=== PATIENT | female | born 1985 | race African-American/Black ===

== ENCOUNTER 2016-08-23 20:37 | Emergency (ER) | payer OTHER ==
--- NOTE | 2016-08-23 21:31 | ED Physician Chart ---
Chief Complaint/HPI - Patient Information Date Seen:: 08/23/16 Time Seen:: 21:15 Chief Complaint:: vaginal discharge History of Present Illness:: patient has had vaginal discharge and abdominal pain for a few weeks. Is but unsure how many weeks. LMP . . Allergies:: Allergies Allergy/AdvReac Type Severity Reaction Status Date / Time No Known Allergies Allergy Verified 01/31/16 14:08 Vitals:: Vital Signs - 8 hr 08/23/16 21:03 Temp 98.2 F HR 100 RR 18 BP 121/66 O2 Sat % 97 Historian:: Patient Review:: Nurse's Note Reviewed Review of Systems - Review of Systems General/Constitutional: No fever, No chills Skin: No skin lesions Head: No headache Eyes: No loss of vision ENT: No earache Neck: No neck pain Cardio Vascular: No chest pain Pulmonary: No SOB GI: No nausea, No vomiting, No diarrhea, Pain G/U: No dysuria Bead Inspector: Vaginal discharge Musculoskeletal: No bone or joint pain Endocrine: No polyuria, No polydipsia Psychiatric: No prior psych history Hematopoietic: No bruising Allergic/Immuno: No urticaria Neurological: No syncope Past Medical History - Past Medical History Past Medical History: No significant medical hx Family History: HTN Social History: Smoker Surgical History: None Psychiatricy History: None Medication: None Family Medical History - Family Member Mother History Unknown: Yes Living Status: Still Living Hx Family Cancer: No Hx Family Coronary Artery Disease: No Hx Family Congestive Heart Failure: No Hx Family Hypertension: Yes Hx Family Stroke: No Physical Exam - Physical Examination General/Constitutional: Well-developed, well-nourished, Alert Head: Atraumatic Eyes: Lids, conjuctiva normal, PERRL Skin: Nl inspection, No rash, No skin lesions, No ecchymosis ENMT: External ears, nose nl Neck: No nuchal rigidity Respiratory: Nl effort/Exclusion, Clear to Auscultation Cardio Vascular: RRR, No murmur, gallop, rubs, NL S1 S2 GI: No tenderness/rebounding/guarding, No organomegaly, No hernia, Normal BS's, Nondistended, No mass/bruits, No McBurney tenderness : No CVA tenderness, NL external genitalia, No CMT, NL adnexa Other comments:: 2.5/4 thick white discharge. Extremities: Normal digits & nails Neuro/Psych: Alert/oriented, No focal deficits Misc: Normal back Labs/Radiology/EKG Results - Lab Results Results: Ua 10-25 WBC; urine test positive ED Septic Shock - . Is Septic Shock (SBP<90, OR Lactate>4 mmol\L) present?: No - <6hrs of presentation: Vital Signs: Vital Signs - 8 hr 08/23/16 21:03 Temp 98.2 F HR 100 RR 18 BP 121/66 O2 Sat % 97 Reassessment (Disposition) - Reassessment Reassessment Condition:: Unchanged - Diagnosis Diagnosis:: UTI; intrauterine - Aftercare/Follow up Instructions Aftercare/Follow-Up Instructions:: Refer to Discharge Instructions Medication Prescribed:: Keflex 500 mg QID for one week - Patient Disposition Discharge/Transfer:: Home Condition at Disposition:: Stable, Unchanged
[2016-08-23 22:35] LABS: URINE BILIRUBIN NEGATIVE (NEGATIVE); URINE BLOOD NEGATIVE (NEGATIVE); URINE COLOR YELLOW; URINE GLUCOSE (UA) NEGATIVE (NEGATIVE); URINE KETONE NEGATIVE (NEGATIVE); URINE PROTEIN 30 mg/dL (NEGATIVE)
[2016-08-23 22:36] LABS: URINE BACTERIA MODERATE /hpf (NONE SEEN); URINE EPITHELIAL CELLS MODERATE /lpf (FEW); URINE RBC 0-2 /hpf (0-5)
== END 2016-08-23 23:02 | disposition home or self-care (01) ==
LOC: ER 20:37
DX: O23.40 Unspecified infection of urinary tract in pregnancy, unspecified trimester (principal); F17.200 Nicotine dependence, unspecified, uncomplicated
CPT/HCPCS: 81001-TC; 81025-TC; 87086-90; 87491-90; Z7502

== ENCOUNTER 2016-09-15 18:04 | Emergency (ER) | payer OTHER ==
--- NOTE | 2016-09-15 19:17 | ED Physician Chart ---
Chief Complaint/HPI - Patient Information Date Seen:: 09/15/16 Time Seen:: 18:45 Allergies:: Allergies Allergy/AdvReac Type Severity Reaction Status Date / Time No Known Allergies Allergy Verified 09/15/16 18:51 Vitals:: Vital Signs - 8 hr 09/15/16 18:52 Temp 98.3 F HR 100 RR 18 BP 109/65 O2 Sat % 98 Review of Systems - Review of Systems General/Constitutional: No fever, No chills, No weight loss G/U: No dysuria, No frequency Executive Business Coach: Vaginal discharge Musculoskeletal: Bone or joint pain (14 weeks ) Family Medical History - Family Member Mother History Unknown: Yes Ethnicity: Non- Living Status: Still Living Hx Family Cancer: No Hx Family Coronary Artery Disease: No Hx Family Congestive Heart Failure: No Hx Family Hypertension: Yes Hx Family Stroke: No Physical Exam - Physical Examination General/Constitutional: Awake, Well-developed, well-nourished, Alert, No distress, Non-toxic appearing Eyes: PERRL Skin: No rash Respiratory: Nl effort/Exclusion GI: No tenderness/rebounding/guarding, Nondistended Neuro/Psych: Alert/oriented, Mood normal Labs/Radiology/EKG Results - Lab Results Results: pt declines formal exam and testing "i just want antibx for chlamydia and GC". Assessment - Assessment General Assessment: hx unprotected sex with vag d/c and told by boyfriend he has "STD". 14 weeks . ED Septic Shock - . Is Septic Shock (SBP<90, OR Lactate>4 mmol\\L) present?: No - <6hrs of presentation: Vital Signs: Vital Signs - 8 hr 09/15/16 18:52 Temp 98.3 F HR 100 RR 18 BP 109/65 O2 Sat % 98
== END 2016-09-15 21:00 | disposition home or self-care (01) ==
LOC: ER 18:04
DX: O26.92 Pregnancy related conditions, unspecified, second trimester (principal); Z3A.14 14 weeks gestation of pregnancy
CPT/HCPCS: J0696; Z7502

== ENCOUNTER 2016-10-18 02:26 | Emergency (ER) | payer OTHER ==
[2016-10-18 03:06] LABS: URINE BILIRUBIN NEGATIVE (NEGATIVE); URINE BLOOD NEGATIVE (NEGATIVE); URINE COLOR YELLOW; URINE GLUCOSE (UA) NEGATIVE (NEGATIVE); URINE KETONE NEGATIVE (NEGATIVE); URINE PH 7.5; URINE PROTEIN NEGATIVE (NEGATIVE); URINE UROBILINOGEN 0.2 E.U./dL (0.2 - 1.0)
[2016-10-18 03:07] LABS: URINE BACTERIA FEW /hpf (NONE SEEN); URINE EPITHELIAL CELLS MODERATE /lpf (FEW); URINE RBC 0-2 /hpf (0-5)
--- NOTE | 2016-10-18 03:18 | ED Physician Chart ---
Chief Complaint/HPI - Patient Information Date Seen:: 10/18/16 Time Seen:: 03:18 Chief Complaint:: think i have a std History of Present Illness:: pt well known to me from prior visits. she says she was txd recently for gc/chlamydia. says she went again and has been having sex w same partner again who has not been treated. pt hs poor recolection of when/where txd or when exposed. she now says she has a yellow dc and itching and thinks the infection is back. I have advised her that a dc during can be nrml. there are other std s besides gc/chlam and pt is unsure even if this is what he had. I have advised pt that I would reccomend we do testing now and have her visit her finance analyst dr in 2 days to interpret result and treat prn. pt insisting she wants a rx now. she is currently 16 wks gravid. she has seen her finance analyst dr in past and had us ok. no recent abd cramps or contractions or uterine pain. no fever. no dysuria. Allergies:: Allergies Allergy/AdvReac Type Severity Reaction Status Date / Time No Known Allergies Allergy Verified 09/15/16 18:51 Vitals:: Vital Signs - 8 hr 10/18/16 02:39 Temp 98.2 F HR 67 RR 19 BP 119/76 O2 Sat % 100 Historian:: Patient Review of Systems - Review of Systems General/Constitutional: No fever, No chills, No weight loss, No weakness, No diaphoresis, No edema, No loss of appetite Skin: No skin lesions, No rash, No bruising Head: No headache, No light-headedness Eyes: No loss of vision, No pain, No diplopia ENT: No earache, No nasal drainage, No sore throat, No tinnitus Neck: No neck pain, No swelling, No thyromegaly, No stiffness, No mass noted Cardio Vascular: No chest pain, No palpitations, No PND, No orthopnea, No edema Pulmonary: No SOB, No cough, No sputum, No wheezing GI: No nausea, No vomiting, No diarrhea, No pain, No melena, No hematochezia, No constipation, No hematemesis G/U: No dysuria, No frequency, No hematuria Drafter Cartographic: Vaginal discharge Musculoskeletal: No bone or joint pain, No back pain, No muscle pain Endocrine: No polyuria, No polydipsia Psychiatric: No prior psych history, No depression, No anxiety, No suicidal ideation Hematopoietic: No bruising, No lymphadenopathy Allergic/Immuno: No urticaria, No angioedema Neurological: No syncope, No focal symptoms, No weakness, No paresthesia, No headache, No seizure, No dizziness, No confusion, No vertigo Past Medical History - Past Medical History Past Medical History: Other (gravid) Social History: Smoker, No Alcohol Psychiatricy History: Other (anxiety) Medication: Reviewed Family Medical History - Family Member Mother History Unknown: Yes Ethnicity: Non- Living Status: Still Living Hx Family Cancer: No Hx Family Coronary Artery Disease: No Hx Family Congestive Heart Failure: No Hx Family Hypertension: Yes Hx Family Stroke: No Physical Exam - Physical Examination General/Constitutional: Awake, Well-developed, well-nourished, Alert, No distress, GCS 15, Non-toxic appearing, Ambulatory Head: Atraumatic Eyes: Lids, conjuctiva normal, PERRL, EOMI Skin: Nl inspection, No rash, No skin lesions, No ecchymosis, Well hydrated, No lymphadenopathy ENMT: External ears, nose nl, Nasal exam nl, Lips, teeth, gums nl, Oropharynx nl Neck: Nontender, Full ROM w/o pain, No JVD, No nuchal rigidity, No bruit, No mass, No stridor Respiratory: Nl effort/Exclusion, Clear to Auscultation, No Wheeze/Rhonchi/Rales Cardio Vascular: RRR, No murmur, gallop, rubs, NL S1 S2 GI: No tenderness/rebounding/guarding, No organomegaly, No hernia, Normal BS's, Nondistended, No mass/bruits, No McBurney tenderness Other GI comments:: gravid belly ,,uterine sz cw dates //nontndr. pos nabs. no rebound : No CVA tenderness Extremities: No tenderness or effusion, Full ROM, normal strength in all extremities, No edema, Normal digits & nails Neuro/Psych: Alert/oriented, DTR's symmetric, Normal sensory exam, Normal motor strength, Judgement/insight normal, Mood normal, Normal gait, No focal deficits Misc: normal gait, Normal back, No paraspinal tenderness Labs/Radiology/EKG Results - Lab Results Results: Laboratory Tests 10/18/16 10/18/16 02:45 02:45 Urine Source RANDOM Urine Color YELLOW Urine Clarity CLEAR Urine pH 7.5 Ur Specific [place] 1.020 Urine Protein NEGATIVE Urine Glucose (UA) NEGATIVE Urine Ketones NEGATIVE Urine Blood NEGATIVE Urine Nitrate NEGATIVE Urine Bilirubin NEGATIVE Urine Urobilinogen 0.2 Ur Leukocyte Esterase SMALL H Urine RBC 0-2 Urine WBC 6-10 H Ur Epithelial Cells MODERATE Urine Bacteria FEW Urine Test POSITIVE ED Septic Shock - . Is Septic Shock (SBP<90, OR Lactate>4 mmol\L) present?: No - <6hrs of presentation: Vital Signs: Vital Signs - 8 hr 10/18/16 02:39 Temp 98.2 F HR 67 RR 19 BP 119/76 O2 Sat % 100 Reassessment (Disposition) - Reassessment Reassessment Condition:: Unchanged - Diagnosis Diagnosis:: possible std - Aftercare/Follow up Instructions Aftercare/Follow-Up Instructions:: Counseled pt regarding lab results/diagnosis & need follow up Medication Prescribed:: rx amox 500tid x1wk and 1g po azithromycin pt was strongly advised that it would be better to see her finance analyst dr and check the lab reults before taking this med. she is insistent on having this med. pt did not tell me ...seemed very avoidant of reporting full story ...but she tells rn that she was just at other hosp across [facility] earlier [facility] and was told she has no infection and was refused abx. was upset by this. please get all partners tested and treated before resuming sex wo a condom. - Patient Disposition Discharge/Transfer:: Home Condition at Disposition:: Unchanged
== END 2016-10-18 03:40 | disposition home or self-care (01) ==
LOC: ER 02:26
DX: O26.892 Other specified pregnancy related conditions, second trimester (principal); Z11.3 Encounter for screening for infections with a predominantly sexual mode of transmission; F17.200 Nicotine dependence, unspecified, uncomplicated; Z3A.16 16 weeks gestation of pregnancy
CPT/HCPCS: 81001-TC; 81025-TC; 87491-90; Z7502

== ENCOUNTER 2017-04-15 20:24 | Emergency (ER) | payer MEDICAID, OTHER ==
[2017-04-15 21:35] LABS: % BASOPHILS 0.4 % (0.0-2.0); % EOSINOPHILS 2.1 % (0.0-5.0); % LYMPHOCYTES 40.7 % (20.0-50.0); % MONOCYTES 10.5 % (2.0-10.0); % NEUTROPHILS 46.3 % (40.0-80.0); HEMATOCRIT 39.4 % (41.0-60); HEMOGLOBIN 13.2 gm/dL (12-16); MEAN CELL VOLUME 88.9 fl (81-100); MEAN CORPUSCULAR HEMOGLOBIN 29.7 pg (27.0-31.0); MEAN CORPUSCULAR HGB CONC 33.4 pg (28.0-36.0); MEAN PLATELET VOLUME 7.7 fl; NEUTROPHILE ABSOLUTE 2.9 Th/cmm (1.8-8.0); RED BLOOD COUNT 4.43 Mil/cmm (3.80-5.10); RED CELL DISTRIBUTION WIDTH 14.1 % (11.5-20.0)
[2017-04-15 21:36] LABS: PLATELET COUNT 321 Th/cmm (150-400); WHITE BLOOD COUNT 6.3 Th/cmm (4.8-10.8)
--- NOTE | 2017-04-15 21:42 | ED Physician Chart ---
ED Chief Complaint/HPI - Patient Information Date Seen:: 04/15/17 Time Seen:: 20:40 Chief Complaint:: pelvic discomfort History of Present Illness:: THIS IS A 31 YEAR OLD FEMALE WHO IS CONCERNED ABOUT GETTING A PELVIC EXAMINE EACH TIME THAT SHE COMES TO THE ER. SHE HAS BEEN HERE MULTIPLE TIME FOR VAGINAL EXAMINES AND INFECTIONS. SHE STATED THAT SHE HAS A WHITE DISCHARGE AND WANTS MEDICATION FOR PELVIC DISEASE AND AN HIV TEST. Allergies:: Allergies Allergy/AdvReac Type Severity Reaction Status Date / Time No Known Allergies Allergy Verified 04/15/17 20:37 Vitals:: Vital Signs - 8 hr 04/15/17 20:35 Temp 98.1 F HR 98 RR 20 BP 125/77 O2 Sat % 100 Historian:: Patient Review:: Nurse's Note Reviewed, Old Chart Reviewed ED Review of Systems - Review of Systems General/Constitutional: No fever, No chills, No weight loss, No weakness, No diaphoresis, No edema, No loss of appetite Skin: No skin lesions, No rash, No bruising Head: No headache, No light-headedness Eyes: No loss of vision, No pain, No diplopia ENT: No earache, No nasal drainage, No sore throat, No tinnitus Neck: No neck pain, No swelling, No thyromegaly, No stiffness, No mass noted Cardio Vascular: No chest pain, No palpitations, No PND, No orthopnea, No edema Pulmonary: No SOB, No cough, No sputum, No wheezing GI: No nausea, No vomiting, No diarrhea, No pain, No melena, No hematochezia, No constipation, No hematemesis G/U: No dysuria, No frequency, No hematuria Shoe Trimmer: Vaginal discharge Musculoskeletal: No bone or joint pain, No back pain, No muscle pain Endocrine: No polyuria, No polydipsia Psychiatric: No prior psych history, No depression, No anxiety, No suicidal ideation Hematopoietic: No bruising, No lymphadenopathy Allergic/Immuno: No urticaria, No angioedema Neurological: No syncope, No focal symptoms, No weakness, No paresthesia, No headache, No seizure, No dizziness, No confusion, No vertigo ED Past Medical History - Past Medical History Obtainable: Yes Past Medical History: No significant medical hx Family History: None Social History: Non Smoker, No Alcohol, Illicit Drug Use Surgical History: None Psychiatricy History: None Medication: Reviewed Family Medical History - Family Member Mother History Unknown: Yes Ethnicity: Non- Living Status: Still Living Hx Family Cancer: No Hx Family Coronary Artery Disease: No Hx Family Congestive Heart Failure: No Hx Family Hypertension: Yes Hx Family Stroke: No ED Physical Exam - Physical Examination General/Constitutional: Awake, Well-developed, well-nourished, Alert, No distress, GCS 15, Non-toxic appearing, Ambulatory Head: Atraumatic Eyes: Lids, conjuctiva normal, PERRL, EOMI Skin: Nl inspection, No rash, No skin lesions, No ecchymosis, Well hydrated, No lymphadenopathy ENMT: External ears, nose nl, Nasal exam nl, Lips, teeth, gums nl Neck: Nontender, Full ROM w/o pain, No JVD, No nuchal rigidity, No bruit, No mass, No stridor Respiratory: Nl effort/Exclusion, Clear to Auscultation, No Wheeze/Rhonchi/Rales Cardio Vascular: RRR, No murmur, gallop, rubs, NL S1 S2 GI: No tenderness/rebounding/guarding, No organomegaly, No hernia, Normal BS's, Nondistended, No mass/bruits, No McBurney tenderness : No CVA tenderness, NL external genitalia Extremities: No tenderness or effusion, Full ROM, normal strength in all extremities, No edema, Normal digits & nails Neuro/Psych: Alert/oriented, DTR's symmetric, Normal sensory exam, Normal motor strength, Judgement/insight normal, Mood normal, Normal gait, No focal deficits Misc: normal gait, Normal back, No paraspinal tenderness ED Labs/Radiology/EKG Results - Lab Results Results: Laboratory Tests 04/15/17 04/15/17 04/15/17 20:35 20:35 20:35 WBC RBC Hgb Hct MCV MCH MCHC Differential RDW Plt Count MPV Neutrophils % Lymphocytes % Monocytes % Eosinophils % Basophils % Sodium Potassium Chloride Carbon Dioxide Anion Gap BUN Creatinine Est GFR ( Amer) Est GFR (Non-Af Amer) BUN/Creatinine Ratio Glucose Calcium Total Bilirubin AST ALT Alkaline Phosphatase Troponin I Total Protein Albumin Globulin Albumin/Globulin Ratio TSH Urine Source CLEAN C Urine Color YELLOW Urine Clarity HAZY Urine pH 6.0 Ur Specific [place] <= 1.005 Urine Protein NEGATIVE Urine Glucose (UA) NEGATIVE Urine Ketones NEGATIVE Urine Blood MODERATE H Urine Nitrate NEGATIVE Urine Bilirubin NEGATIVE Urine Urobilinogen 0.2 Ur Leukocyte Esterase LARGE H Urine RBC 2-5 Urine WBC 25-50 H Ur Epithelial Cells MODERATE Urine Bacteria MODERATE Urine Test NEGATIVE Urine Opiates Screen POSITIVE H Urine Methadone Screen NEGATIVE Ur Barbiturates Screen NEGATIVE Ur Tricyclics Screen NEGATIVE Ur Phencyclidine Scrn NEGATIVE Amphetamines Screen NEGATIVE U Methamphetamines Scrn NEGATIVE U Benzodiazepines Scrn NEGATIVE U Cocaine Metab Screen NEGATIVE U Cannabinoids Screen NEGATIVE RPR HIV 1&2 Antibody Screen 04/15/17 04/15/17 04/15/17 21:19 21:19 21:19 WBC 6.3 D RBC 4.43 Hgb 13.2 Hct 39.4 L MCV 88.9 MCH 29.7 MCHC Differential 33.4 RDW 14.1 Plt Count 321 D MPV 7.7 Neutrophils % 46.3 Lymphocytes % 40.7 Monocytes % 10.5 H Eosinophils % 2.1 Basophils % 0.4 Sodium 135 L Potassium 3.5 Chloride 103 Carbon Dioxide 27.5 Anion Gap 8.0 BUN 8 Creatinine 0.9 Est GFR ( Amer) > 60.0 Est GFR (Non-Af Amer) > 60.0 BUN/Creatinine Ratio 8.9 Glucose 94 Calcium 9.4 Total Bilirubin 0.4 AST 30 ALT 28 Alkaline Phosphatase 78 Troponin I < 0.01 L Total Protein 8.0 Albumin 4.2 Globulin 3.8 Albumin/Globulin Ratio 1.1 TSH Urine Source Urine Color Urine Clarity Urine pH Ur Specific [place] Urine Protein Urine Glucose (UA) Urine Ketones Urine Blood Urine Nitrate Urine Bilirubin Urine Urobilinogen Ur Leukocyte Esterase Urine RBC Urine WBC Ur Epithelial Cells Urine Bacteria Urine Test Urine Opiates Screen Urine Methadone Screen Ur Barbiturates Screen Ur Tricyclics Screen Ur Phencyclidine Scrn Amphetamines Screen U Methamphetamines Scrn U Benzodiazepines Scrn U Cocaine Metab Screen U Cannabinoids Screen RPR HIV 1&2 Antibody Screen 04/15/17 04/15/17 04/15/17 21:19 21:19 21:19 WBC RBC Hgb Hct MCV MCH MCHC Differential RDW Plt Count MPV Neutrophils % Lymphocytes % Monocytes % Eosinophils % Basophils % Sodium Potassium Chloride Carbon Dioxide Anion Gap BUN Creatinine Est GFR ( Amer) Est GFR (Non-Af Amer) BUN/Creatinine Ratio Glucose Calcium Total Bilirubin AST ALT Alkaline Phosphatase Troponin I Total Protein Albumin Globulin Albumin/Globulin Ratio TSH 0.67 Urine Source Urine Color Urine Clarity Urine pH Ur Specific [place] Urine Protein Urine Glucose (UA) Urine Ketones Urine Blood Urine Nitrate Urine Bilirubin Urine Urobilinogen Ur Leukocyte Esterase Urine RBC Urine WBC Ur Epithelial Cells Urine Bacteria Urine Test Urine Opiates Screen Urine Methadone Screen Ur Barbiturates Screen Ur Tricyclics Screen Ur Phencyclidine Scrn Amphetamines Screen U Methamphetamines Scrn U Benzodiazepines Scrn U Cocaine Metab Screen U Cannabinoids Screen RPR NONREACTIVE HIV 1&2 Antibody Screen NEGATIVE ED Assessment - Assessment General Assessment: VAGINITIS ED Septic Shock - . Is Septic Shock (SBP<90, OR Lactate>4 mmol\L) present?: No - <6hrs of presentation: Vital Signs: Vital Signs - 8 hr 04/15/17 20:35 Temp 98.1 F HR 98 RR 20 BP 125/77 O2 Sat % 100 ED Reassessment (Disposition) - Reassessment Reassessment Condition:: Unchanged - Diagnosis Diagnosis:: VAGINITIS - Aftercare/Follow up Instructions Aftercare/Follow-Up Instructions:: Counseled pt regarding lab results/diagnosis & need follow up, Refer to Discharge Instructions, Counseled pt & family regarding lab results/diagnosis & need follow up - Patient Disposition Discharge/Transfer:: Home Condition at Disposition:: Unchanged ED Discharge Plan - Patient Disposition Admit/Discharge/Transfer: PT DISCHARGED HOME Condition at Disposition: Improved Instructions: Urinary Tract Infection, [id number]
[2017-04-15 21:43] LABS: ALB/GLOB RATIO 1.1 (1.0-1.8); ALKALINE PHOSPHATASE 78 U/L (34-104); BILIRUBIN,TOTAL 0.4 mg/dL (0.3-1.0); BUN - UREA NITROGEN 8 mg/dL (7-25); BUN/CREATININE RATIO 8.9; CALCIUM SERUM 9.4 mg/dL (8.6-10.3); CARBON DIOXIDE 27.5 mEq/L (21.0-31.0); CHLORIDE 103 mEq/L (98-107); CREATININE - SERUM 0.9 mg/dL (0.6-1.2); GLUCOSE 94 mg/dL (70-105); POTASSIUM SERUM 3.5 mEq/L (3.5-5.1); SGOT 30 U/L (13-39); SGPT/ALT 28 U/L (7-52); SODIUM SERUM 135 mEq/L (136-145)
[2017-04-15 21:47] LABS: URINE BILIRUBIN NEGATIVE (NEGATIVE); URINE BLOOD MODERATE (NEGATIVE); URINE GLUCOSE (UA) NEGATIVE (NEGATIVE); URINE KETONE NEGATIVE (NEGATIVE); URINE PROTEIN NEGATIVE (NEGATIVE); URINE UROBILINOGEN 0.2 E.U./dL (0.2 - 1.0)
[2017-04-15 21:50] LABS: URINE BACTERIA MODERATE /hpf (NONE SEEN); URINE COLOR YELLOW; URINE EPITHELIAL CELLS MODERATE /lpf (FEW); URINE WBC 25-50 /hpf (0-5)
[2017-04-15 21:54] LABS: AMPHETAMINE URINE NEGATIVE (NEGATIVE); BARBITURATES URINE NEGATIVE (NEGATIVE); METHADONE URINE NEGATIVE (NEGATIVE)
--- NOTE | 2017-04-16 08:07 | Diagnostic Imaging Report ---
Pelvic ultrasound HISTORY: Pain, 6 weeks The exam is limited to transabdominal sonographic technique. Reason overall normal uterine size (9.5 x 5.6 x 6.5 cm). No focal myometrial lesions are seen. The endometrium is thickened (1.2 cm). The right ovary is mildly enlarged (4.0 x 3.5 x 2.3 cm). No abnormal masses. The left ovary measures 3.2 x 2.1 x 1.8 cm. No abnormal masses. No free fluid in pelvis. Limited views of the left kidney appear normal. The spleen is normal in size. IMPRESSION: 1. Thickened endometrium (1.2 cm). The finding should be correlated clinically and with the menstrual status. 2. Mild right ovarian enlargement with no abnormal masses.
== END 2017-04-15 23:05 | disposition home or self-care (01) ==
LOC: ER 20:24
DX: N76.0 Acute vaginitis (principal)
CPT/HCPCS: 36415-UA; 76857-TC; 80053-TC; 80307; 81001-TC; 81025-TC; 84443-TC; 84484-TC; 85025-TC; 86592-TC; 86703-TC; 87086-90

== ENCOUNTER 2018-03-01 15:08 | Emergency (ER) | payer MEDICAID ==
--- NOTE | 2018-03-01 16:24 | ED Physician Chart ---
ED Chief Complaint/HPI - Patient Information Date Seen:: 03/01/18 Time Seen:: 15:30 Chief Complaint:: unprotected sex History of Present Illness:: this is a 32 yo female who is concerned that she had unprotected sex with painful urination but no vaginal discharge. 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 Allergies:: Allergies Allergy/AdvReac Type Severity Reaction Status Date / Time No Known Allergies Allergy Verified 04/15/17 20:37 Vitals:: Vital Signs - 8 hr 03/01/18 15:25 Temp 99.3 F HR 90 RR 16 BP 101/71 O2 Sat % 96 Historian:: Patient Review:: Nurse's Note Reviewed, Old Chart Reviewed ED Review of Systems - Review of Systems General/Constitutional: No fever, No chills, No weight loss, No weakness, No diaphoresis, No edema, No loss of appetite Skin: No skin lesions, No rash, No bruising Head: No headache, No light-headedness Eyes: No loss of vision, No pain, No diplopia ENT: No earache, No nasal drainage, No sore throat, No tinnitus Neck: No neck pain, No swelling, No thyromegaly, No stiffness, No mass noted Cardio Vascular: No chest pain, No palpitations, No PND, No orthopnea, No edema Pulmonary: No SOB, No cough, No sputum, No wheezing GI: No nausea, No vomiting, No diarrhea, No pain, No melena, No hematochezia, No constipation, No hematemesis G/U: Dysuria, No frequency, No hematuria Musculoskeletal: No bone or joint pain, No back pain, No muscle pain Endocrine: No polyuria, No polydipsia Psychiatric: No prior psych history, No depression, No anxiety, No suicidal ideation Hematopoietic: No bruising, No lymphadenopathy Allergic/Immuno: No urticaria, No angioedema Neurological: No syncope, No focal symptoms, No weakness, No paresthesia, No headache, No seizure, No dizziness, No confusion, No vertigo ED Past Medical History - Past Medical History Obtainable: Yes Past Medical History: No significant medical hx Family History: None Social History: Non Smoker, No Alcohol, No Drug Use, Single Surgical History: None Psychiatricy History: None Medication: Reviewed Family Medical History - Family Member Mother History Unknown: Yes Ethnicity: Non- Living Status: Still Living Hx Family Cancer: No Hx Family Coronary Artery Disease: No Hx Family Congestive Heart Failure: No Hx Family Hypertension: Yes Hx Family Stroke: No ED Physical Exam - Physical Examination General/Constitutional: Awake, Well-developed, well-nourished, Alert, No distress, GCS 15, Non-toxic appearing, Ambulatory Head: Atraumatic Eyes: Lids, conjuctiva normal, PERRL, EOMI Skin: Nl inspection, No rash, No skin lesions, No ecchymosis, Well hydrated, No lymphadenopathy ENMT: External ears, nose nl, Nasal exam nl, Lips, teeth, gums nl Neck: Nontender, Full ROM w/o pain, No JVD, No nuchal rigidity, No bruit, No mass, No stridor Respiratory: Nl effort/Exclusion, Clear to Auscultation, No Wheeze/Rhonchi/Rales Cardio Vascular: RRR, No murmur, gallop, rubs, NL S1 S2 GI: No tenderness/rebounding/guarding, No organomegaly, No hernia, Normal BS's, Nondistended, No mass/bruits, No McBurney tenderness : No CVA tenderness Extremities: No tenderness or effusion, Full ROM, normal strength in all extremities, No edema, Normal digits & nails Neuro/Psych: Alert/oriented, DTR's symmetric, Normal sensory exam, Normal motor strength, Judgement/insight normal, Mood normal, Normal gait, No focal deficits Misc: Normal back, No paraspinal tenderness ED Assessment - Assessment General Assessment: vaginitis uti ED Septic Shock - . Is Septic Shock (SBP<90, OR Lactate>4 mmol\L) present?: No - <6hrs of presentation: Vital Signs: Vital Signs - 8 hr 03/01/18 15:25 Temp 99.3 F HR 90 RR 16 BP 101/71 O2 Sat % 96 ED Reassessment (Disposition) - Reassessment Reassessment Condition:: Unchanged - Diagnosis Diagnosis:: vaginitis uti - Aftercare/Follow up Instructions Aftercare/Follow-Up Instructions:: Counseled pt regarding lab results/diagnosis & need follow up, Refer to Discharge Instructions, Counseled pt & family regarding lab results/diagnosis & need follow up - Patient Disposition Discharge/Transfer:: Home Condition at Disposition:: Unchanged
== END 2018-03-01 16:40 | disposition home or self-care (01) ==
LOC: ER 15:08
DX: N76.0 Acute vaginitis (principal); N39.0 Urinary tract infection, site not specified
CPT/HCPCS: 99283; 96372; J0696; Z7502